=== PATIENT | female | born 1950 | race Caucasian/White ===

== ENCOUNTER 2018-06-14 11:49 | Outpatient (CLI) | payer MEDICARE | END 2018-06-14 11:50 | disposition home or self-care (01) | LOC: BICMAMMO 11:49 | PROVIDERS: ATTEND Internal Medicine | DX: Z12.31 Encounter for screening mammogram for malignant neoplasm of breast (principal); Z80.3 Family history of malignant neoplasm of breast | CPT/HCPCS: 77063; 77067 ==

== ENCOUNTER 2019-04-10 14:30 | Outpatient (CLI) | payer MEDICARE ==
--- NOTE | 2019-04-10 15:01 | RAD ---
Exam:3 views right ankle HISTORY: Pain. COMPARISON: None FINDINGS: Joint spaces preserved. No fracture or malalignment. No significant soft tissue swelling IMPRESSION: Unremarkable right ankle 3 views.
== END 2019-04-10 14:31 | disposition home or self-care (01) ==
LOC: BICRAD 14:30
PROVIDERS: ATTEND Podiatrist
DX: M25.571 Pain in right ankle and joints of right foot (principal)

== ENCOUNTER 2019-05-09 09:01 | Outpatient (CLI) | payer MEDICARE ==
--- NOTE | 2019-05-09 12:14 | MRI ---
MRI RIGHT ANKLE WITHOUT CONTRAST: Date: 05/09/19 HISTORY: M24.873, other specified joint derangement of ankle. Lateral malleolar pain. COMPARISON: Radiograph dated 04/10/19. FINDINGS: Ligaments: AITFL and PITFL are intact. ATFL is mildly thickened, as well as the CFL, likely from prior tear. Spr ing ligament is intact. Tendons: Achilles tendon is intact. Extensor tendons are intact. Flexor tendons are intact. There is a longitudinal split tear of the peroneus brevis originating near the tip of the lateral mal leolus for a length of 3 cm before reconstituting. High grade tendinosis of the split torn tendon. Th ere is also moderate tendinosis and abnormal edema within the os peroneum with reactive edema in the lateral and plantar margin of the calcaneal cortex and medullary cavity. There is high grade fluid in the tendon sheath. Bones: Reactive edema of the lateral and plantar margin of the calcaneus. Moderate degenerative disease of t he first and second tarsometatarsal joints. No osteochondral defects of the talar dome. Muscles: Muscle signal and bulk are normal. IMPRESSION: 1. Longitudinal split tear peroneus brevis tendon extending from the lateral malleolus for a length of 3 cm before reconstituting. Extensive intraligamentous degeneration. 2. High grade tenosynovitis of the peroneus longus past the level of the lateral malleolus with exte nsive reactive edema of the calcaneus. Both the tenosynovitis of the peroneus longus and the longitud inal split tear of the peroneus brevis are likely the source of the patient's pain due to the reactiv e marrow edema of the calcaneus. 3. Thickened ATFL and CFL, likely from prior tear. 4. Mild mid foot degenerative changes. POS: [facility]
== END 2019-05-09 09:02 | disposition home or self-care (01) ==
LOC: BICMRI 09:01
PROVIDERS: ATTEND Podiatrist
DX: M25.571 Pain in right ankle and joints of right foot (principal); S96.811A Strain of other specified muscles and tendons at ankle and foot level, right foot, initial encounter; M65.871 Other synovitis and tenosynovitis, right ankle and foot; M19.071 Primary osteoarthritis, right ankle and foot; M25.871 Other specified joint disorders, right ankle and foot

== ENCOUNTER 2019-06-19 10:28 | Outpatient (CLI) | payer MEDICARE ==
--- NOTE | 2019-06-19 13:44 | MMO ---
Bilateral MAMMO Bilat Screen [facility]. CLINICAL HISTORY: Patient is 69 years old and is seen for screening. The patient has the following PANCREATIC. The patient has no personal history of cancer. The patient has a history of right Excisional Biopsy at age 37 - benign. VIEWS: The views performed were: bilateral craniocaudal with tomosynthesis; bilateral mediolateral oblique with tomosynthesis; and bilateral exaggerated craniocaudal. FILMS COMPARED: The present examination has been compared to prior imaging studies performed at [facility] on 05/20/2015, 05/25/2016, 05/30/2017 and 06/14/2018. MAMMOGRAM FINDINGS: The breasts are heterogeneously dense, which could obscure a lesion on mammography. There are benign appearing calcifications seen in both breasts. There are no suspicious masses, suspicious calcifications, or new areas of architectural distortion. IMPRESSION: THERE IS NO MAMMOGRAPHIC EVIDENCE OF MALIGNANCY. A ROUTINE FOLLOW-UP MAMMOGRAM IN 1 YEAR IS RECOMMENDED. THE RESULTS OF THIS EXAM WERE SENT TO THE PATIENT. ACR BI-RADS Category 2 - Benign finding MAMMOGRAPHY NOTE: 1. A negative mammogram report should not delay a biopsy if a dominant of clinically suspicious mass is present. 2. Approximately 10% to 15% of breast cancers are not detected by mammography. 3. Adenosis and dense breasts may obscure an underlying neoplasm. Reported by: AMANUEL WHITE MD Electonically Signed: [id number]
== END 2019-06-19 10:29 | disposition home or self-care (01) ==
LOC: BICMAMMO 10:28
PROVIDERS: ATTEND Internal Medicine
DX: Z12.31 Encounter for screening mammogram for malignant neoplasm of breast (principal)
CPT/HCPCS: 77063; 77067

== ENCOUNTER 2020-06-23 11:18 | Outpatient (CLI) | payer MEDICARE ==
--- NOTE | 2020-06-23 12:09 | MMO ---
Bilateral MAMMO Bilat Screen [facility]. CLINICAL HISTORY: Patient is 70 years old and is seen for screening. The patient has the following PANCREATIC. The patient has no personal history of cancer. The patient has a history of right Excisional Biopsy at age 37 - benign. VIEWS: The views performed were: bilateral craniocaudal with tomosynthesis and bilateral mediolateral oblique with tomosynthesis. FILMS COMPARED: The present examination has been compared to prior imaging studies performed at [facility] on 05/25/2016, 05/30/2017, 06/14/2018 and 06/19/2019. This study has been interpreted with the assistance of computer-aided detection. MAMMOGRAM FINDINGS: The breasts are heterogeneously dense, which could obscure a lesion on mammography. There are stable benign appearing calcifications seen in both breasts. There are no suspicious masses, suspicious calcifications, or new areas of architectural distortion. IMPRESSION: THERE IS NO MAMMOGRAPHIC EVIDENCE OF MALIGNANCY. A ROUTINE FOLLOW-UP MAMMOGRAM IN 1 YEAR IS RECOMMENDED. THE RESULTS OF THIS EXAM WERE SENT TO THE PATIENT. ACR BI-RADS Category 2 - Benign finding MAMMOGRAPHY NOTE: 1. A negative mammogram report should not delay a biopsy if a dominant of clinically suspicious mass is present. 2. Approximately 10% to 15% of breast cancers are not detected by mammography. 3. Adenosis and dense breasts may obscure an underlying neoplasm. Reported by: ABBY OCONNELL MD Electonically Signed: [id number]
== END 2020-06-23 11:19 | disposition home or self-care (01) ==
LOC: BICMAMMO 11:18
PROVIDERS: ATTEND Internal Medicine
DX: Z12.31 Encounter for screening mammogram for malignant neoplasm of breast (principal); Z91.89 Other specified personal risk factors, not elsewhere classified
CPT/HCPCS: 77063; 77067

== ENCOUNTER 2021-08-26 14:52 | Outpatient (CLI) | payer MEDICARE | END 2021-08-26 14:53 | disposition home or self-care (01) | LOC: BICMAMMO 14:52 | PROVIDERS: ATTEND Internal Medicine | DX: Z12.31 Encounter for screening mammogram for malignant neoplasm of breast (principal); Z80.0 Family history of malignant neoplasm of digestive organs; Z91.89 Other specified personal risk factors, not elsewhere classified | CPT/HCPCS: 77063; 77067 ==

== ENCOUNTER 2021-09-27 23:29 | Observation (INO) | payer MEDICARE ==
[2021-09-27] MEDS ORDERED: Aspirin 325 MG TAB ONE (23:45)
[2021-09-27] MEDS ORDERED: Nitroglycerin 2% Ointment 1 INCH/1 GM Packet ONE (23:45)
[2021-09-27 23:49] LABS: #Basophils 0.1 thou/uL (0.0-0.2); #Eosinphils 0.2 thou/uL (0.0-0.7); #Lymphocytes 2.1 thou/uL (1.20-3.40); #Monocytes 0.6 thou/uL (0.11-0.59); #Neutrophils 2.6 thou/uL (1.40-6.50); %Basophils 1.7 % (0.0-1.0); %Lymphocytes 37.6 % (21.0-51.0); %Monocytes 10.9 % (0.0-10.0); %Neutrophils 46.8 % (42.0-75.0); Hemoglobin 14.3 g/dL (12.0-16.0); Mean Corpuscular HGB CONC 34.4 g/dL (32.0-36.0); Mean Corpuscular Hemoglobin 31.4 pg (27.0-31.0); Mean Corpuscular Volume 91.5 fL (78.0-98.0); Mean Platelet Volume 7.8 fL (7.4-10.4); Platelet Count 212 thou/uL (130-400); RBC Distribution Width 12.8 % (11.5-14.5); Red Blood Cell (RBC) Count 4.56 mill/uL (4.20-5.40); White Blood Cell (WBC) Count 5.5 thou/uL (4.8-10.8)
[2021-09-28 00:15] LABS: ALT (SGPT) 21 U/L (8-55); AST (SGOT) 34 U/L (5-34); Albumin 4.2 g/dL (3.4-4.8); Alkaline Phosphatase 80 U/L (40-110); Anion Gap 15 mmol/L (10-20); BUN (Urea Nitrogen) 16 mg/dL (9.8-20.1); Bilirubin, Total 0.4 mg/dL (0.2-1.2); Calc. Creatinine Clearance 0 mL/min (70-130); Calcium 8.9 mg/dL (7.8-10.44); Carbon Dioxide 26 mmol/L (23-31); Chloride 103 mmol/L (98-107); Globulin 3.3 g/dL (2.4-3.5); Glucose 102 mg/dL (83-110); Potassium 3.9 mmol/L (3.5-5.1); Protein, Total 7.5 g/dL (5.8-8.1); Sodium 140 mmol/L (136-145)
[2021-09-28] MEDS ORDERED: Milk Of Magnesia 30 ML UDCUP ONE (00:35)
[2021-09-28] MEDS ORDERED: Lidocaine Viscous Sol 2% 15 ml UD Cup ONE (00:35)
[2021-09-28] MEDS ORDERED: Nitroglycerin 0.4 MG TAB (25 Tab Bottle) SL PRN (01:07)
[2021-09-28] MEDS ORDERED: Senokot S 8.6-50 MG TAB PO PRN (01:11)
[2021-09-28] MEDS ORDERED: Ondansetron PF 4 MG/2 ML Vial IVP PRN (01:11)
[2021-09-28] MEDS ORDERED: Ondansetron ODT 4 MG TAB PO PRN (01:11)
[2021-09-28] MEDS ORDERED: hydrALAZINE 20 MG/ML VIAL SLOW IVP PRN (01:14)
[2021-09-28] MEDS ORDERED: Sodium Chloride 0.9% 1,000 ML IV SCH (01:15)
[2021-09-28] MEDS: Acetaminophen 325 MG TAB PO PRN ×2 (03:07→06:53)
[2021-09-28 04:04] LABS: Bacteria/HPF None Seen HPF (None Seen); Bilirubin Negative (Negative); Blood, Urine Negative (Negative); Clarity Clear (Clear); Glucose, Urine (Dipstick) Normal (Negative); Ketone, Urine Negative (Negative); Leukocyte 250 Leu/uL (Negative); Nitrite Negative (Negative); Protein, Urine (Dipstick) Negative (Neg-Trace); RBC/HPF 0-3 HPF (0-3); Specific Gravity, Urine 1.006 (1.002-1.036); Squamous Epithelial None Seen HPF (0-3); Urobilinogen Normal mg/dL (Less than 2); pH, Urine 7.5 (5.0-9.0)
[2021-09-28 04:14] VITALS: BMI 24.4
[2021-09-28 04:24] LABS: Troponin I Less than 0.010 ng/mL (< 0.028)
[2021-09-28 05:35] LABS: #Eosinphils 0.1 thou/uL (0.0-0.7); #Lymphocytes 1.8 thou/uL (1.20-3.40); #Monocytes 0.7 thou/uL (0.11-0.59); #Neutrophils 4.8 thou/uL (1.40-6.50); %Basophils 0.1 % (0.0-1.0); %Eosinophils 1.5 % (0.0-10.0); %Lymphocytes 24.3 % (21.0-51.0); %Monocytes 9.2 % (0.0-10.0); Hemoglobin 12.8 g/dL (12.0-16.0); Mean Corpuscular HGB CONC 32.7 g/dL (32.0-36.0); Mean Corpuscular Hemoglobin 29.8 pg (27.0-31.0); Mean Corpuscular Volume 91.3 fL (78.0-98.0); Mean Platelet Volume 7.8 fL (7.4-10.4); Platelet Count 198 thou/uL (130-400); RBC Distribution Width 12.8 % (11.5-14.5); Red Blood Cell (RBC) Count 4.29 mill/uL (4.20-5.40); White Blood Cell (WBC) Count 7.4 thou/uL (4.8-10.8)
[2021-09-28 06:06] LABS: Anion Gap 9 mmol/L (10-20); BUN (Urea Nitrogen) 13 mg/dL (9.8-20.1); Calc. Creatinine Clearance 82 mL/min (70-130); Calcium 9.1 mg/dL (7.8-10.44); Carbon Dioxide 29 mmol/L (23-31); Cardiac Risk 3.1 (Less than 4.5); Chloride 106 mmol/L (98-107); Cholesterol 192 mg/dl (< 200 Desired); Glucose 100 mg/dL (83-110); HDL Cholesterol 62 mg/dL (>60 Neg Risk); LDL Cholesterol, Calculated 100 mg/dL; Magnesium 1.9 mg/dL (1.6-2.6); Sodium 140 mmol/L (136-145); Triglycerides 149 mg/dL (Less than 150)
[2021-09-28 07:42] LABS: Troponin I Less than 0.010 ng/mL (< 0.028)
[2021-09-28 11:44] LABS: SARS-CoV-2 PCR by NAA Not Detected (NotDetected)
[2021-09-28 14:24] VITALS: BP 125/61; TEMP 98.7
== END 2021-09-28 17:16 | disposition home or self-care (01) ==
LOC: ERS 23:29 → NEURO 09-28 01:02
PROVIDERS: ADMIT Student in an Organized Health Care Education/Training Program; ATTEND Internal Medicine
DX: R07.2 Precordial pain (principal); I10 Essential (primary) hypertension; K58.9 Irritable bowel syndrome, unspecified; K21.9 Gastro-esophageal reflux disease without esophagitis; J30.9 Allergic rhinitis, unspecified; Z79.899 Other long term (current) drug therapy; Z20.822 Contact with and (suspected) exposure to COVID-19
CPT/HCPCS: 71045; 78452; 80048; 80053; 80061; 81001; 83690; 83735; 84443; 84484 ×3; 85025 ×2; 93005; 93017; A9500; G0378 ×2; U0003; U0005; 36415; J7050

== ENCOUNTER 2022-12-27 10:24 | Outpatient (CLI) | payer MEDICARE | END 2022-12-27 10:25 | disposition home or self-care (01) | LOC: BICMAMMO 10:24 | PROVIDERS: ATTEND Family Medicine | DX: M81.0 Age-related osteoporosis without current pathological fracture (principal) | CPT/HCPCS: 77080 ==

== ENCOUNTER 2023-01-10 12:18 | Outpatient (CLI) | payer MEDICARE | END 2023-01-10 12:19 | disposition home or self-care (01) | LOC: BICRAD 12:18 | PROVIDERS: ATTEND Family Medicine | DX: S86.912A Strain of unspecified muscle(s) and tendon(s) at lower leg level, left leg, initial encounter (principal); M17.12 Unilateral primary osteoarthritis, left knee; M76.892 Other specified enthesopathies of left lower limb, excluding foot ==

== ENCOUNTER 2023-02-17 17:48 | Emergency (ER) | payer MEDICARE ==
[2023-02-17] MEDS ORDERED: HYDROcodone/Acetaminophen 10/325 mg Tablet ONE (18:41)
== END 2023-02-17 20:04 | disposition home or self-care (01) ==
LOC: ERS 17:48
DX: M25.562 Pain in left knee (principal)